=== PATIENT | male | born 1990 | race Caucasian/White ===

== ENCOUNTER 2020-09-27 13:12 | Outpatient (CLI) | payer OTHER, SELFPAY ==
[2020-09-27 14:03] LABS: SARS-CoV-2 Ag Negative (Negative)
== END 2020-09-27 13:13 | disposition home or self-care (01) ==
PROVIDERS: PCP Internal Medicine; Visit Provider Internal Medicine
DX: Z20.828 Contact with and (suspected) exposure to other viral communicable diseases (principal)
CPT/HCPCS: 87426; C9803

== ENCOUNTER 2020-10-04 14:42 | Outpatient (CLI) | payer OTHER, SELFPAY ==
[2020-10-04 15:33] LABS: SARS-CoV-2 Ag Positive (Negative)
== END 2020-10-04 14:43 | disposition home or self-care (01) ==
LOC: CHSLAB 14:48
PROVIDERS: PCP Internal Medicine; Visit Provider Internal Medicine
DX: U07.1 COVID-19 (principal)
CPT/HCPCS: 87426; C9803

== ENCOUNTER 2021-04-27 18:47 | Outpatient (CLI) | payer OTHER, SELFPAY ==
[2021-04-27 19:14] LABS: Hematocrit 45.9 % (40.0-54.0); Hemoglobin 15.2 g/dL (14.0-18.0); Mean Corpuscular HGB Conc 33.1 g/dL (32.0-36.0); Mean Corpuscular Hemoglobin 30.6 pg (27.0-31.0); Mean Corpuscular Volume 92.4 fL (78.0-102.0); Mean Platelet Volume 10.5 fl (8.7-11.0); Platelet Count Result 203 K/mm3 (150-420); Red Blood Count 4.97 M/mm3 (4.70-6.10); Red Cell Distribution Width 11.7 % (11.6-14.4); White Blood Count 8.5 K/mm3 (4.8-10.8)
[2021-04-27 19:27] LABS: Add Urine Microscopic? NO; Appearance Urine Clear (Clear); Bilirubin Urine Negative (Negative); Blood Urine Negative (Negative); Color Urine Light Yellow (Yellow); Glucose Urine UA Negative (Negative); Ketones Urine Negative (Negative); Leukocyte Esterase Ur Negative (Negative); Nitrate Urine Negative (Negative); Protein Urine Negative (Negative); Specific Grav Ur 1.015 (1.010-1.020); Urobilinogen Urine 0.2 mg/dL (0.2-1.0); pH Urine 6.5 (5.0-8.0)
[2021-04-27 19:48] LABS: Alanine Aminotransferase 62 U/L (16-63); Albumin Level 4.7 g/dL (3.4-5.0); Alkaline Phosphatase 50 U/L (46-116); Anion Gap 7 mmol/L (8-16); Aspartate Amino Transferase 72 U/L (15-37); Bilirubin,Total 0.4 mg/dL (0.00-1.00); Blood Urea Nitrogen 12 mg/dL (7-18); CRP < 0.5 mg/dL (0.0-0.9); Calcium 9.4 mg/dL (8.5-10.1); Carbon Dioxide 32 mmol/L (21-32); Chloride 103 mmol/L (98-108); Cholesterol 133 mg/dL (0-200); Estimated Glomerular Filt Rate > 60; Free T3 3.67 pg/mL (2.18-3.98); Free T4 Free Thyroxine 1.04 ng/dL (0.76-1.46); Glucose 88 mg/dL (70-99); HDL Direct 61 mg/dL (40-60); LDL Cholesterol Calculated 53 mg/dL (<130); Osmolality Calculated 292 mOsm/kg (285-295); Potassium 4.2 mmol/L (3.5-5.1); Sodium 142 mmol/L (136-145); Thyroid Stimulating Hormone 1.54 uIU/mL (0.36-3.74); Total Protein 8.3 g/dL (6.4-8.2); Triglycerides 93 mg/dL (0-150)
[2021-04-27 20:06] LABS: Erythrocyte Sedimentation Rate 2 mm/hr (0-15)
== END 2021-04-27 18:48 | disposition home or self-care (01) ==
LOC: CHSLAB 18:50
PROVIDERS: PCP Internal Medicine; Visit Provider Internal Medicine
DX: Z00.00 Encounter for general adult medical examination without abnormal findings (principal); R53.83 Other fatigue
CPT/HCPCS: 36415; 80053; 80061; 81003; 84439; 84443; 84481; 85027; 85652; 86140

== ENCOUNTER 2021-05-24 08:02 | Outpatient (CLI) | payer OTHER, SELFPAY ==
--- NOTE | 2021-06-16 11:40 | WPDHOMESLEEP ---
Sleep Study - Home Unattended Date of Study: 05/24/21 Ordering Provider: Gloria Angulo MD Interpreting Provider: Valentina Morocho MD Home Sleep Study Type: Watch PAT Height: 1.93 m Weight: 83.915 kg Body Mass Index: 22.5 Neck Circumference (inches): 15.25 Gore: 7 Reason for Sleep Study Excessive daytime sleepiness, difficulty waking. Sleep History Tre Edgar is a 31-year-old male who uses trazodone to help initiate sleep. He rarely awakens from sleep feeling short of breath. He frequently awakens at night with heartburn, belching or coughing. He occasionally snores. He rarely snores loudly enough that others complain about it. He rarely has trouble sleeping with a cold. He rarely wakes up gasping for breath at night. He occasionally has breathing problems at night observed by others. He occasionally sweats excessively at night and notices his heart pounding or beating irregularly at night. He occasionally falls asleep during the day, rarely falls asleep involuntarily, never falls asleep while driving. He does not have loss of muscle tone with strong emotion. He rarely has daytime difficulties due to excessive sleepiness. He does not feel paralyzed on waking or falling asleep. He does not have vivid dreamlike scenes upon awakening or falling asleep. He does not feel afraid to go to sleep. He occasionally has nightmares, occasionally remembers his dreams and frequently has racing thoughts. He occasionally feels sad or depressed. He frequently has anxiety. He rarely has muscular tension. He occasionally notices parts of his body jerking. He occasionally kicks at night occasionally has crawling and aching feelings in his legs. He rarely has any kind of leg pain at night. He frequently has morning jaw pain and frequently grinds his teeth during sleep. He rarely is bothered by pain during the day and rarely awakened by pain at night. Occasionally wakes up feeling stiff in the morning with sore achy muscles as well as pain in the neck and spine. He has fatigue, depression, feelings of panic. He takes antacids regularly. Normal bedtime is 10:00 p.m. falling asleep within 15 minutes waking once at night at most. Sometimes he does not awaken during the night. While awake he often has to urinate and then will return to sleep within 10 minutes. He wakes the morning at 6:30 a.m.. On the weekends bedtime is later midnight, and he wakes at 8:00 a.m.. He estimates getting 7 hours of sleep normally. He does not generally take naps. A short nap is not refreshing. He is usually drowsy in the morning for 2 hours or longer. He feels better in the evening compared other times of day. Habits: caffeine 3 cups of coffee. Alcohol 5-6 beverages on the weekends. [facility] Past Medical History Medical History (Updated 06/16/21 @ 12:13 by Valentina Morocho MD) Anxiety and depression GERD (gastroesophageal reflux disease) Medications Medications: citalopram 20 mg a day Trazodone 50 mg Sleep Procedure The sleep study was completed using ProteoMediXT a technically adequate device with seven channels: peripheral arterial tone, actigraphy, body position, snore, respiratory movement, pulse oximetry, sleep staging, and heart rate. Prior to using the device, the patient received verbal and written instructions for its application and was provided with the help desk phone number for additional telephonic instruction with 24-hour availability of qualified personnel to answer questions. Sleep Architecture The recording duration was 7 hours 51 minutes. Sleep duration 5 hours 52 minutes. Sleep latency 58 minutes prolonged. REM latency extremely prolonged 284 minutes. There were 11 awakenings. The patient spent 25% of the study awake after sleep onset. Sleep efficiency is 75%. Sleep architecture showed 75% light sleep, 12% deep sleep and 13% stage REM. The patient spent 33% of the study in the supine position and 66% of the study in the nonsup
[2021-06-16 11:49] VITALS: BMI 22.5
== END 2021-05-27 13:04 | disposition home or self-care (01) ==
PROVIDERS: PCP Internal Medicine; Visit Provider Internal Medicine
DX: G47.33 Obstructive sleep apnea (adult) (pediatric) (principal); R06.83 Snoring; G25.81 Restless legs syndrome
CPT/HCPCS: 95800

== ENCOUNTER 2021-06-09 17:24 | Outpatient (CLI) | payer OTHER, SELFPAY ==
[2021-06-09 18:21] LABS: Alanine Aminotransferase 43 U/L (16-63); Albumin Level 4.8 g/dL (3.4-5.0); Alkaline Phosphatase 49 U/L (46-116); Anion Gap 10 mmol/L (8-16); Aspartate Amino Transferase 24 U/L (15-37); Bilirubin,Total 0.6 mg/dL (0.00-1.00); Blood Urea Nitrogen 11 mg/dL (7-18); Calcium 9.2 mg/dL (8.5-10.1); Carbon Dioxide 30 mmol/L (21-32); Chloride 102 mmol/L (98-108); Estimated Glomerular Filt Rate > 60; Glucose 81 mg/dL (70-99); Osmolality Calculated 292 mOsm/kg (285-295); Sodium 142 mmol/L (136-145); Total Protein 7.6 g/dL (6.4-8.2)
== END 2021-06-09 17:25 | disposition home or self-care (01) ==
LOC: CHSLAB 17:26
PROVIDERS: PCP Internal Medicine; Visit Provider Internal Medicine
DX: R94.5 Abnormal results of liver function studies (principal)
CPT/HCPCS: 36415; 80053

== ENCOUNTER 2021-08-03 10:01 | Outpatient (CLI) | payer OTHER, SELFPAY | END 2021-08-03 10:02 | disposition home or self-care (01) | LOC: CHSAUDIO 10:03 | PROVIDERS: PCP Internal Medicine; Visit Provider Internal Medicine | DX: H93.19 Tinnitus, unspecified ear (principal); H91.90 Unspecified hearing loss, unspecified ear | CPT/HCPCS: 92557; 92567 ==

== ENCOUNTER 2023-08-21 10:47 | Outpatient (CLI) | payer BC, SELFPAY ==
[2023-08-21 11:21] LABS: Basophils Absolute Auto 0.09 K/mm3 (0.00-0.10); Basophils Percent Auto 1.3 % (0.0-1.0); Eosinophils Absolute Auto 0.19 K/mm3 (0.02-0.50); Eosinophils Percent Auto 2.7 % (1.0-6.0); Hematocrit 46.1 % (40.0-54.0); Hemoglobin 15.2 g/dL (14.0-18.0); Immature Granulocyte Absolute 0.13 K/mm3 (0.00-0.00); Immature Granulocyte Percent A 1.9 % (0.0-0.0); Lymphocytes Absolute Auto 2.09 K/mm3 (1.10-4.50); Lymphocytes Percent Auto 29.8 % (18.0-42.0); Mean Corpuscular Hemoglobin 30.3 pg (27.0-31.0); Mean Corpuscular Volume 91.8 fL (78.0-102.0); Mean Platelet Volume 10.8 fl (8.7-11.0); Monocytes Absolute Auto 0.56 K/mm3 (0.10-0.90); Neutrophils Percent Auto 56.3 % (50.0-70.0); Platelet Count Result 220 K/mm3 (150-420); Red Blood Count 5.02 M/mm3 (4.70-6.10); Red Cell Distribution Width 11.9 % (11.6-14.4)
[2023-08-21 11:22] LABS: Appearance Urine Clear (Clear); Bilirubin Urine Negative (Negative); Blood Urine Negative (Negative); Color Urine Light Yellow (Yellow); Glucose Urine UA Negative (Negative); Ketones Urine Negative (Negative); Leukocyte Esterase Ur Negative LEU/UL (Negative); Nitrate Urine Negative (Negative); Protein Urine Negative (Negative); Specific Grav Ur <= 1.005 (1.010-1.020); Urobilinogen Urine 0.2 mg/dL (0.2-1.0); pH Urine 6.5 (5.0-8.0)
[2023-08-21 11:31] LABS: Add Urine Microscopic? NO
[2023-08-21 11:53] LABS: Alanine Aminotransferase 37 U/L (16-63); Albumin Level 4.3 g/dL (3.4-5.0); Alkaline Phosphatase 52 U/L (46-116); Anion Gap 3 mmol/L (8-16); Aspartate Amino Transferase 28 U/L (15-37); Bilirubin,Total 0.6 mg/dL (0.00-1.00); Blood Urea Nitrogen 16 mg/dL (7-18); Calcium 9.5 mg/dL (8.5-10.1); Carbon Dioxide 36 mmol/L (21-32); Chloride 100 mmol/L (98-108); Cholesterol 189 mg/dL (0-200); Estimated Glomerular Filt Rate > 60; Free T4 Free Thyroxine 0.84 ng/dL (0.76-1.46); Glucose 98 mg/dL (70-99); HDL Direct 54 mg/dL (40-60); LDL Cholesterol Calculated 94 mg/dL (<130); Osmolality Calculated 289 mOsm/kg (285-295); Potassium 4.4 mmol/L (3.5-5.1); Sodium 139 mmol/L (136-145); Thyroid Stimulating Hormone 1.37 uIU/mL (0.36-3.74); Triglycerides 207 mg/dL (0-150)
== END 2023-08-21 10:48 | disposition home or self-care (01) ==
PROVIDERS: PCP Internal Medicine; Visit Provider Nurse Practitioner Family
DX: Z00.00 Encounter for general adult medical examination without abnormal findings (principal); R03.0 Elevated blood-pressure reading, without diagnosis of hypertension
CPT/HCPCS: 36415; 80053; 80061; 81003; 83036; 84439; 84443; 85025

== ENCOUNTER 2024-08-28 09:11 | Outpatient (CLI) | payer BC, SELFPAY ==
[2024-08-28 09:26] LABS: Basophils Absolute Auto 0.09 K/mm3 (0.00-0.10); Eosinophils Percent Auto 2.3 % (1.0-6.0); Hemoglobin 15.3 g/dL (14.0-18.0); Immature Granulocyte Absolute 0.13 K/mm3 (0.00-0.00); Immature Granulocyte Percent A 1.5 % (0.0-0.0); Lymphocytes Absolute Auto 2.66 K/mm3 (1.10-4.50); Mean Corpuscular HGB Conc 33.3 g/dL (32-36); Mean Corpuscular Volume 90.2 fL (78.0-102.0); Monocytes Absolute Auto 0.76 K/mm3 (0.10-0.90); Monocytes Percent Auto 8.6 % (2.0-11.0); Neutrophils Absolute Auto 5.04 K/mm3 (1.70-7.20); Neutrophils Percent Auto 56.6 % (50.0-70.0); Platelet Count Result 248 K/mm3 (150-420); White Blood Count 8.9 K/mm3 (4.8-10.8)
[2024-08-28 09:27] LABS: Add Urine Microscopic? NO; Appearance Urine Clear (Clear); Bilirubin Urine Negative (Negative); Blood Urine Negative (Negative); Color Urine Light Yellow (Yellow); Glucose Urine UA Negative (Negative); Ketones Urine Negative (Negative); Leukocyte Esterase Ur Negative (Negative); Nitrate Urine Negative (Negative); Protein Urine Negative (Negative); Urobilinogen Urine 0.2 mg/dL (0.2-1.0); pH Urine 7.5 (5.0-8.0)
[2024-08-28 10:49] LABS: Alanine Aminotransferase 37 U/L (16-63); Albumin Level 4.6 g/dL (3.4-5.0); Alkaline Phosphatase 61 U/L (46-116); Anion Gap 10 mmol/L (4-12); Aspartate Amino Transferase 22 U/L (15-37); Bilirubin,Total 0.7 mg/dL (0.00-1.00); Blood Urea Nitrogen 11 mg/dL (7-18); Calcium 10.1 mg/dL (8.5-10.1); Carbon Dioxide 31 mmol/L (21-32); Chloride 99 mmol/L (98-108); Cholesterol 184 mg/dL (0-200); Estimated Glomerular Filt Rate > 60; Free T4 Free Thyroxine 0.88 ng/dL (0.76-1.46); Glucose 95 mg/dL (70-99); HDL Direct 51 mg/dL (40-60); LDL Cholesterol Calculated 105 mg/dL (<130); Osmolality Calculated 289 mOsm/kg (285-295); Potassium 5.4 mmol/L (3.5-5.1); Sodium 140 mmol/L (136-145); Thyroid Stimulating Hormone 0.99 uIU/mL (0.36-3.74); Triglycerides 140 mg/dL (0-150)
== END 2024-08-28 09:12 | disposition home or self-care (01) ==
PROVIDERS: PCP Internal Medicine; Visit Provider Nurse Practitioner Family
DX: Z00.00 Encounter for general adult medical examination without abnormal findings (principal); K21.9 Gastro-esophageal reflux disease without esophagitis; I10 Essential (primary) hypertension
CPT/HCPCS: 36415; 80053; 80061; 81003; 84439; 84443; 85025

== ENCOUNTER 2024-09-09 11:27 | Outpatient (CLI) | payer BC, SELFPAY ==
--- NOTE | ~2024-09-09 | XR_ITS ---
XR facial bones min 3V Ordering provider: Gloria Angulo MD History: . FALL X2DAYS AGO,FACIAL BRUISING THRU NOSE TO EYE, RT>LT PAIN . Comparison: None. FINDINGS: BONES: Slightly inferiorly displaced facial bones is noted. No other fractures seen. PARANASAL SINUSES: Well aerated. SOFT TISSUES: Normal. IMPRESSION: Slightly displaced nasal bones. Reviewed, dictated and finalized at location A. [facility]
== END 2024-09-09 11:28 | disposition home or self-care (01) ==
LOC: CHSIMG 11:28
PROVIDERS: PCP Internal Medicine; Visit Provider Internal Medicine
DX: S02.2XXA Fracture of nasal bones, initial encounter for closed fracture (principal); W19.XXXA Unspecified fall, initial encounter
CPT/HCPCS: 70150

== ENCOUNTER 2024-09-10 16:29 | Outpatient (CLI) | payer BC, SELFPAY ==
[2024-09-10 17:58] LABS: Anion Gap 10 mmol/L (4-12); Blood Urea Nitrogen 10 mg/dL (7-18); Calcium 9.8 mg/dL (8.5-10.1); Carbon Dioxide 30 mmol/L (21-32); Chloride 99 mmol/L (98-108); Estimated Glomerular Filt Rate > 60; Glucose 83 mg/dL (70-99); Osmolality Calculated 286 mOsm/kg (285-295); Potassium 4.6 mmol/L (3.5-5.1); Sodium 139 mmol/L (136-145)
== END 2024-09-10 16:30 | disposition home or self-care (01) ==
LOC: CHSLAB 16:46
PROVIDERS: PCP Internal Medicine; Visit Provider Nurse Practitioner Family
DX: E87.5 Hyperkalemia (principal)
CPT/HCPCS: 36415; 80048

== ENCOUNTER 2025-07-07 08:53 | Outpatient (CLI) | payer BC, SELFPAY ==
[2025-07-07 09:05] LABS: Add Urine Microscopic? NO; Appearance Urine Clear (Clear); Glucose Urine UA Negative (Negative); Hematocrit 44.7 % (40.0-54.0); Hemoglobin 14.9 g/dL (14.0-18.0); Immature Granulocyte Percent A 1.3 % (0.0-0.0); Leukocyte Esterase Ur Negative LEU/UL (Negative); Lymphocytes Absolute Auto 1.93 K/mm3 (1.10-4.50); Mean Corpuscular HGB Conc 33.3 g/dL (32-36); Mean Corpuscular Hemoglobin 30.2 pg (27.0-31.0); Mean Corpuscular Volume 90.7 fL (78.0-102.0); Nitrate Urine Negative (Negative); Nucleated Red Blood Cells Absolute Auto 0.00 K/mm3 (0.00-0.00); Nucleated Red Blood Cells Perc 0.0 % (0-0.0); Platelet Count Result 214 K/mm3 (150-420); Red Blood Count 4.93 M/mm3 (4.70-6.10); Specific Grav Ur <= 1.005 (1.010-1.020); White Blood Count 6.8 K/mm3 (4.8-10.8)
[2025-07-07 09:20] LABS: Hemoglobin A1C 4.9 % (<5.7)
[2025-07-07 10:04] LABS: Alanine Aminotransferase 33 U/L (6-50); Albumin Level 5.0 g/dL (3.5-5.1); Alkaline Phosphatase 48 U/L (38-126); Anion Gap 8 mmol/L (4-12); Aspartate Amino Transferase 36 U/L (17-59); Bilirubin,Total 0.6 mg/dL (0.2-1.3); Blood Urea Nitrogen 16 mg/dL (9-20); Calcium 10.2 mg/dL (8.4-10.2); Carbon Dioxide 33 mmol/L (22-30); Chloride 101 mmol/L (98-107); Cholesterol 194 mg/dL (0-200); Estimated Glomerular Filt Rate > 60; Glucose 95 mg/dL (65-110); HDL Direct 59 mg/dL; Osmolality Calculated 295 mOsm/kg (285-295); Potassium 5.1 mmol/L (3.4-5.0); Sodium 142 mmol/L (137-145); Total Protein 9.5 g/dL (6.3-8.2); Triglycerides 352 mg/dL (<150)
[2025-07-07 10:21] LABS: Free T3 4.88 pg/mL (2.18-3.98); Free T4 Free Thyroxine 0.81 ng/dL (0.78-2.19)
[2025-07-07 10:34] LABS: Thyroid Stimulating Hormone 1.680 uIU/mL (0.465-4.680)
== END 2025-07-07 08:54 | disposition home or self-care (01) ==
LOC: CHSLAB 08:54
PROVIDERS: PCP Internal Medicine; Visit Provider Internal Medicine
DX: I10 Essential (primary) hypertension (principal); E78.2 Mixed hyperlipidemia; N39.0 Urinary tract infection, site not specified; R73.01 Impaired fasting glucose; E03.4 Atrophy of thyroid (acquired)
CPT/HCPCS: 36415; 80053; 80061; 81003; 83036; 84439; 84443; 84481; 85025